=== PATIENT | male | born 2000 | race African-American/Black ===

== ENCOUNTER 2018-01-29 04:41 | Emergency (ER) | payer OTHER ==
[~2018-01-29] VITALS: Ht 175.3 cm; Wt 160.0 kg
[~2018-01-29 04:41] MED LIST: NO HOME MEDS
[2018-01-29] MEDS ORDERED: PERCOCET 5/325M1 TAB PO (06:44)
[2018-01-29 06:45] VITALS: BP 136/80
== END 2018-01-29 07:05 | disposition home or self-care (01) ==
LOC: ED 04:41
DX: S62.512A Displaced fracture of proximal phalanx of left thumb, initial encounter for closed fracture (principal); X58.XXXA Exposure to other specified factors, initial encounter; Y93.67 Activity, basketball; Y92.009 Unspecified place in unspecified non-institutional (private) residence as the place of occurrence of the external cause

== ENCOUNTER 2019-03-06 15:26 | Emergency (ER) | payer SELFPAY ==
[~2019-03-06] VITALS: Ht 175.3 cm; Wt 81.8 kg
[~2019-03-06 15:26] MED LIST changes: +PERCOCET 5/325M1 TAB PO
[2019-03-06 16:00] LABS: HEMATOCRIT 47.9 % (39.0-50.0); IMMATURE GRANULOCYTES 0.2 % (0.0-5.0); MEAN CELL VOLUME 86.6 fL CALC (80.0-100.0); MEAN CORPUSCULAR HGB 28.9 pG CALC (26.0-32.0); MEAN CORPUSCULAR HGB CONC 33.4 g/L CALC (32.0-36.0); NEUT# 5.27 thou/uL (1.82-7.42); RED BLOOD COUNT 5.53 mill/uL (4.70-6.10); RED CELL DISTRI WIDTH 13.7 % (11.5-15.5)
[2019-03-06 16:17] LABS: ALBUMIN 4.6 g/dL (3.2-5.0); ALKALINE PHOSPHATASE 76 u/l (38-126); ANION GAP 13 (6-22 (CALC)); BILIRUBIN, TOTAL 0.9 mg/dL (0.0-1.4); BUN 11 mg/dL (9-20); BUN/CREATININE RATIO 12 (12-20 (CALC)); CARBON DIOXIDE 27 mmol/l (22-30); CHLORIDE 102 mmol/l (95-108); CREATININE 0.9 mg/dL (0.7-1.3); GFR > 60 ML/MIN (>=60 (CALC)); GFR FOR AFR.AMER. > 60 ML/MIN (>=60 (CALC)); POTASSIUM 3.8 mmol/l (3.5-5.1); SGOT/AST 27 u/l (17-59); SODIUM 138 mmol/l (137-146); TOTAL PROTEIN 8.2 g/dL (6.3-8.2)
[2019-03-06] MEDS ORDERED: PHENERGAN25 MG/TAB PO (17:07)
[2019-03-06] MEDS ORDERED: LOMOTIL2.5 MG PO (17:07)
[2019-03-06 17:34] VITALS: BP 136/79
== END 2019-03-06 17:45 | disposition home or self-care (01) | DRG 392 ==
LOC: ED 15:26
PROVIDERS: Family Medicine
DX: A08.4 Viral intestinal infection, unspecified (principal)

== ENCOUNTER 2022-10-14 19:08 | Emergency (ER) | payer SELFPAY ==
[~2022-10-14] VITALS: Ht 175.3 cm; Wt 78.2 kg
[~2022-10-14 19:08] MED LIST changes: +LOMOTIL2.5 MG PO; +PHENERGAN25 MG/TAB PO
[2022-10-14] MEDS ORDERED: NAPROXEN500 MG PO (20:45)
[2022-10-14 21:42] VITALS: BP 112/63
== END 2022-10-14 21:59 | disposition home or self-care (01) | DRG 605 ==
LOC: ED 19:08
DX: S60.221A Contusion of right hand, initial encounter (principal); W22.09XA Striking against other stationary object, initial encounter; Y93.89 Activity, other specified; Y92.009 Unspecified place in unspecified non-institutional (private) residence as the place of occurrence of the external cause